=== PATIENT | female | born 1960 | race American Indian/Alaskan Native ===

== ENCOUNTER 2018-12-16 21:40 | Emergency (ER) | payer BC ==
[2018-12-16] MEDS ORDERED: CLEOCIN PO ONE (22:22)
--- NOTE | 2018-12-16 22:26 | Emergency Department Report ---
- General Chief Complaint: Wound/Laceration Stated Complaint: LEFT HAND SCRATCH Time Seen by Provider: 12/16/18 22:21 Source: patient Mode of arrival: Ambulatory Limitations: No Limitations - History of Present Illness Initial Comments: Patient is a 50-year-old -[place] sugars daily symptoms for a hand scratch the patient is ago tetanus is up-to-date health has been notified high- risk scratches began to have erythema patient with course of antibiotics for same patient has seen employee health nurse for documentation and screening and will follow-up with employee health. Onset/Timin -: days(s) Extremity Location: Left: Hand Place: work Patient Tetanus UTD: Yes Context: accidental Associated Symptoms: pain - Related Data Previous Rx's Medication Instructions Recorded Last Taken Type Clindamycin [Clindamycin CAP] 300 mg PO Q8H 10 Days #30 cap 12/16/18 Unknown Rx Neomycn/Bacitrc/Polymyx/Pramox 1 applicatio TP BID 14 Days #1 tube 12/16/18 Unknown Rx [Neosporin + Pain Relief Oint] Allergies Allergy/AdvReac Type Severity Reaction Status Date / Time No Known Allergies Allergy Unverified 12/16/18 21:48 ED Review of Systems ROS: Stated complaint: LEFT HAND SCRATCH Other details as noted in HPI Constitutional: denies: chills, fever Eyes: denies: eye pain, eye discharge, vision change ENT: denies: ear pain, throat pain Respiratory: denies: cough, shortness of breath, wheezing Cardiovascular: denies: chest pain, palpitations Endocrine: no symptoms reported Gastrointestinal: denies: abdominal pain, nausea, diarrhea Genitourinary: denies: urgency, dysuria, discharge Musculoskeletal: denies: back pain, joint swelling, arthralgia Skin: other (abrasion lert dorsal hand ). denies: rash, lesions Neurological: denies: headache, weakness, paresthesias Psychiatric: denies: anxiety, depression Hematological/Lymphatic: denies: easy bleeding, easy bruising ED Past Medical Hx - Past Medical History Previous Medical History?: Yes Hx Hypertension: Yes - Surgical History Past Surgical History?: Yes Additional Surgical History: Hysterectomy - Social History Smoking Status: Never Smoker Substance Use Type: None - Medications Home Medications: Home Medications Medication Instructions Recorded Confirmed Last Taken Type Clindamycin [Clindamycin CAP] 300 mg PO Q8H 10 Days #30 cap 04/27/19 Unknown Rx Neomycn/Bacitrc/Polymyx/Pramox 1 applicatio TP BID 14 Days #1 tube 12/16/18 Unknown Rx [Neosporin + Pain Relief Oint] ED Physical Exam - General Limitations: No Limitations General appearance: alert, in no apparent distress - Head Head exam: Present: atraumatic, normocephalic - Eye Eye exam: Present: normal appearance - ENT ENT exam: Present: mucous membranes moist - Neck Neck exam: Present: normal inspection - Respiratory Respiratory exam: Present: normal lung sounds bilaterally. Absent: respiratory distress - Cardiovascular Cardiovascular Exam: Present: regular rate, normal rhythm. Absent: systolic murmur, diastolic murmur, rubs, gallop - GI/Abdominal GI/Abdominal exam: Present: soft, normal bowel sounds - Rectal Rectal exam: Present: deferred - Extremities Exam Extremities exam: Present: normal inspection - Back Exam Back exam: Present: normal inspection - Neurological Exam Neurological exam: Present: alert, oriented X3 - Psychiatric Psychiatric exam: Present: normal affect, normal mood - Skin Skin exam: Present: warm, dry, intact, normal color. Absent: rash ED Medical Decision Making - Medical Decision Making This is a 3 cm abrasion to left dorsal hand mild erythema no drainage no fever [facility] same [facility] 2 days requesting antibiotic therapy this is reasonable given evidence that was scratched by patient's fingernail prescribed clindamycin and Neosporin and follow-up with employee health in 2 days as scheduled and management of symptoms at this time patient DC'd to home in stable condition Critical care attestation.: If time is entered above; I have spent that time in minutes in the direct care of this critically ill patient, excluding procedure time. ED Disposition Clinical Impression: Abrasion hand Qualifiers: Encounter type: initial encounter Laterality: left Qualified Code(s): S60.512A - Abrasion of left hand, initial encounter Cellulitis Qualifiers: Site of cellulitis: extremity Site of cellulitis of extremity: upper extremity Laterality: left Qualified Code(s): L03.114 - Cellulitis of left upper limb Disposition: DC-01 TO HOME OR SELFCARE Is pt being admited?: No Does the pt Need Aspirin: No Condition: Stable Instructions: Cellulitis (ED), Abrasion (ED) Prescriptions: Clindamycin [Clindamycin CAP] 300 mg PO Q8H 10 Days #30 cap Neomycn/Bacitrc/Polymyx/Pramox [Neosporin + Pain Relief Oint] 1 applicatio TP BID 14 Days #1 tube Referrals: VINICIO WALLACE MD [Staff Physician] - 3-5 Days Forms: Work/School Release Form(ED)
== END 2018-12-16 22:30 | disposition home or self-care (01) ==
LOC: ED 21:40
DX: S60.512A Abrasion of left hand, initial encounter (principal); L03.114 Cellulitis of left upper limb; I10 Essential (primary) hypertension; Z90.710 Acquired absence of both cervix and uterus; X58.XXXA Exposure to other specified factors, initial encounter; Y93.89 Activity, other specified; Y92.69 Other specified industrial and construction area as the place of occurrence of the external cause; Y99.8 Other external cause status
CPT/HCPCS: 99282